=== PATIENT | female | born 1975 | race Native Hawaiian/Other Pacific Islander ===

== ENCOUNTER 2020-07-12 00:21 | Emergency (ER) | payer OTHER ==
[~2020-07-12] VITALS: Ht 162.6 cm; Wt 52.2 kg
[2020-07-12 03:01] VITALS: BP 115/53; TEMP 97.9
== END 2020-07-12 03:01 | disposition home or self-care (01) ==
LOC: ED 00:21
DX: S93.492A Sprain of other ligament of left ankle, initial encounter (principal); S93.491A Sprain of other ligament of right ankle, initial encounter; S93.692A Other sprain of left foot, initial encounter; S93.691A Other sprain of right foot, initial encounter; M54.5 Low back pain; G89.29 Other chronic pain; M25.571 Pain in right ankle and joints of right foot; S82.54XA Nondisplaced fracture of medial malleolus of right tibia, initial encounter for closed fracture; V89.2XXA Person injured in unspecified motor-vehicle accident, traffic, initial encounter; Y92.89 Other specified places as the place of occurrence of the external cause
CPT/HCPCS: 96372; 99283; J1885